=== PATIENT | male | born 1970 | race Caucasian/White ===

== ENCOUNTER 2017-10-28 12:08 | Emergency (ER) | END 2017-10-28 13:52 | disposition home or self-care (01) ==

== ENCOUNTER 2018-07-08 00:06 | Emergency (ER) | END 2018-07-08 06:05 | disposition home or self-care (01) ==

== ENCOUNTER 2019-05-16 21:45 | Emergency (ER) | payer SELFPAY ==
[~2019-05-16] VITALS: Ht 167.6 cm; Wt 88.5 kg
[~2019-05-16 21:45] MED LIST: AMOX500C2 PO; CEPH-443 PO; IBUP-1542 PO; METH750T93 PO; NAPR-688 PO
[2019-05-16 21:56] VITALS: Ht 167.6 cm; Wt 88.5 kg
[2019-05-17] MEDS ORDERED: SOD CHLORIDE 0.9% 500 ML IV STA (01:07)
--- NOTE | 2019-05-17 01:09 | ERD ---
ER Documentation Chief Complaint Chief Complaint WEAKNESS/LETHARGIC/ACTING DIFF PER SINCE RELEASED FROM [facility] Mon 48-year-old man here for episodic syncope over the last 2 weeks, he was released from shelter a week ago and states while there he had a couple of syncopal episodes but he was seen and evaluated by the shelter physician while in custody and states his CT scan and other imaging and work-up was done and was unremarkable. states after release from shelter he had a syncopal episode a few days ago and has been feeling anxious. Patient does admit to anxiety but denies depression, no suicidal homicidal ideation, no complaints of chest pain or shortness of breath, no gait ataxia, no slurred speech, no weakness in his arms or legs ROS All systems reviewed and are negative except as per history of present illness. Medications Home Meds Active Scripts Ibuprofen* (Motrin*) 600 Mg Tab, 600 MG PO Q8 PRN for PAIN AND/OR INFLAMMATION, #30 TAB Prov:BEBE KAUR MD 05/17/19 Cephalexin* (Keflex*) 500 Mg Capsule, 500 MG PO QID for 7 Days, CAP Prov:BEBE KAUR MD 05/17/19 Naproxen* (Naproxen*) 500 Mg Tablet, 500 MG PO BID PRN for PAIN, #20 TAB Prov:DANIELLE NAM DO 07/08/18 Methocarbamol* (Robaxin*) 750 Mg Tablet, 750 MG PO Q6H PRN for MUSCLE SPASMS, #10 TAB Prov:DANIELLE NAM DO 07/08/18 Ibuprofen* (Motrin*) 600 Mg Tab, 600 MG PO Q6, #30 TAB Prov:TREE VALDERRAMA PA-C 10/28/17 Amoxicillin* (Amoxicillin*) 500 Mg Cap, 500 MG PO BID for 10 Days, CAP Prov:TREE VALDERRAMA PA-C 10/28/17 Reported Medications [None] No Conflict Check 01/15/11 Allergies Allergies: Coded Allergies: No Known Drug Allergies (Verified Allergy, Mild, 01/15/11) PMhx/Soc Anxiety History of Surgery: No Anesthesia Reaction: No Hx Neurological Disorder: No Hx Respiratory Disorders: No Hx Cardiac Disorders: No Hx Psychiatric Problems: No Hx Miscellaneous Medical Probl: Yes (psoriasis) Hx Alcohol Use: Yes Hx Substance Use: Yes Hx Tobacco Use: Yes FmHx Family History: No diabetes Physical Exam Vitals Vital Signs Date Temp Pulse Resp B/P (MAP) Pulse Ox O2 O2 Flow FiO2 Time Delivery Rate 05/17/19 73 21 109/72 99 Room Air 02:30 (84) 05/17/19 79 21 113/95 99 Room Air 00:46 (101) 05/16/19 97.4 95 18 118/78 98 21:56 (91) Physical Exam GENERAL: Well-developed, well-nourished, well-hydrated, appears anxious, afebrile HEENT: Moist mucous membranes, pink conjunctiva, no cervical spine tenderness or step-off deformities, no goiter, no jaundice or icterus, extraocular movements intact without pain. No submandibular induration, and no pharyngeal erythema NEURO: Alert and oriented 3, cranial nerves II through XII intact bilaterally, pupils equal round reactive to light, no focal deficits or facial asymmetry, sensation intact distally Strength 5/5 in upper and lower extremities bilaterally CARDIAC: Regular rate and rhythm, no murmurs rubs or gallops LUNGS: Clear bilaterally no wheezing crackles or stridor ABDOMEN: Soft nontender, no guarding, no rigidity, no rebound, no psoas sign no obturator sign. Normoactive bowel sounds SKIN: Warm and dry to touch, no abrasions, contusions, or hematomas, no lacerations, no ecchymosis, no target lesions, and without ulcers EXTREMITIES: No clubbing cyanosis or edema, calves are bilaterally symmetrical, no Homans sign, no popliteal cord sign. Distal pulses equal and bilateral PSYCH: Appears anxious Result Diagram: 05/17/1913005/17/19130 Results 24 hrs Laboratory Tests Test 05/16/19 21:52 05/17/19 01:31 Bedside Glucose 84 mg/dL White Blood Count 9.6 10^3/ul Red Blood Count 4.36 10^6/ul Hemoglobin 13.6 g/dl Hematocrit 40.3 % Mean Corpuscular Volume 92.4 fl Mean Corpuscular Hemoglobin 31.2 pg Mean Corpuscular Hemoglobin Concent 33.7 g/dl Red Cell Distribution Width 12.9 % Platelet Count 289 10^3/UL Mean Platelet Volume 10.4 fl Immature Granulocytes % 0.300 % Neutrophils % 35.3 % Lymphocytes % 46.8 % Monocytes % 9.8 % Eosinophils % 5.8 % Basophils % 2.0 % Nucleated Red Blood Cells % 0.0 /100WBC Immature Granulocytes # 0.030 10^3/ul Neutrophils # 3.4 10^3/ul Lymphocytes # 4.5 10^3/ul Monocytes # 0.9 10^3/ul Eosinophils # 0.6 10^3/ul Basophils # 0.2 10^3/ul Nucleated Red Blood Cells # 0.0 10^3/ul Urine Color YELLOW Urine Clarity CLEAR Urine pH 5.0 Urine Specific Burke 1.020 Urine Ketones NEGATIVE mg/dL Urine Nitrite NEGATIVE mg/dL Urine Bilirubin NEGATIVE mg/dL Urine Urobilinogen NEGATIVE mg/dL Urine Leukocyte Esterase 1+ Myrna/ul Urine Microscopic RBC 1 /HPF Urine Microscopic WBC 27 /HPF Urine Mucus FEW /HPF Urine Hemoglobin NEGATIVE mg/dL Urine Glucose NEGATIVE mg/dL Urine Total Protein NEGATIVE mg/dl Sodium Level 141 mmol/L Potassium Level 3.6 mmol/L Chloride Level 107 mmol/L Carbon Dioxide Level 26 mmol/L Anion Gap 8 Blood Urea Nitrogen 14 mg/dl Creatinine 0.92 mg/dl Est Glomerular Filtrat Rate mL/min > 60 mL/min Glucose Level 110 mg/dl Calcium Level 8.7 mg/dl Total Bilirubin 0.2 mg/dl Direct Bilirubin 0.00 mg/dl Indirect Bilirubin 0.2 mg/dl Aspartate Amino Transf (AST/SGOT) 36 IU/L Alanine Aminotransferase (ALT/SGPT) 47 IU/L Alkaline Phosphatase 62 IU/L Troponin I < 0.012 ng/ml Total Protein 6.9 g/dl Albumin 3.8 g/dl Globulin 3.10 g/dl Albumin/Globulin Ratio 1.22 Lipase 101 U/L Current Medications Medications Dose Sig/Aubrey Start Time Status Last (Trade) Ordered Route PRN Stop Time Admin Dose Reason Admin Alprazolam 0.5 mg ONCE ONCE 05/17/19 DC 05/17/19 (Xanax) PO 01:30 05/17/19 01:44 01:31 Sodium 500 ml @ Q1H STAT 05/17/19 DC 05/17/19 Chloride 500 mls/hr IV 01:07 05/17/19 01:39 02:06 Ceftriaxone 50 ml @ ONCE ONCE 05/17/19 DC 05/17/19 Sodium 100 mls/hr IVPB 02:30 05/17/19 02:16 02:59 Procedures/MDM IV line was established patient was placed on electronic device monitor rhythm strip revealed a sinus rhythm at about 80 bpm with upright P and T waves. Patient was afebrile EKG performed, read by me: 76 bpm, normal sinus rhythm, normal axis, no acute ST segment changes, narrow QRS complex, with good R-wave progression in precordial leads. I administered 500 cc normal saline IV and alprazolam 0.5 mg p.o. x1 CBC was unremarkable, electrolytes normal, liver function test normal, troponin negative, urinalysis positive for infection. Administered ceftriaxone 1 g IV. Patient did have complaints of low back pain although no flank pain and had no flank tenderness to percussion but given his recent symptoms I ordered a CT scan. CT scan of the abdomen pelvis was negative for acute inflammatory infectious pathology, mild degenerative changes and spondylolisthesis was noted to the lumbar spine. Patient's vital signs are normal at this time and he has had no syncopal episodes while in the ER, he looks well and was treated with IV antibiotics and will be discharged with a course of oral antibiotics x1 week. Differential diagnoses considered, included but not limited to acute coronary syndrome, pulmonary embolism, aortic dissection, abdominal aortic aneurysm, sepsis, stroke, meningitis, encephalitis, pneumonia, appendicitis, cholecystitis, bowel obstruction, pyelonephritis, nephrolithiasis, cystitis, as well as metabolic, hematologic, and electrolyte abnormalities. As well as abscess, cellulitis, fractures, and dislocations. Patient feels much better at this time, and vital signs are normal, symptoms have improved. I did give strict instructions to return to the ED if symptoms continue or worsen, patient will otherwise follow-up with primary care physician. Patient understood instructions and agreed to plan. Disclaimer: Inadvertent spelling and grammatical errors are likely due to EHR/dictation software use and do not reflect on the overall quality of patient care. Also, please note that the electronic time recorded on this note does not necessarily reflect the actual time of the patient encounter. Departure Diagnosis: Primary Impression: Syncope Syncope type: unspecified Qualified Codes: R55 - Syncope and collapse Additional Impression: Acute UTI Condition: BEBE Walton MD May 17, 2019 01:09
[2019-05-17] MEDS ORDERED: ALPRAZOLAM 0.25 MG TAB PO ONE (01:30)
[2019-05-17 02:30] VITALS: BP 109/72; PULSE 73; RESP 21
[2019-05-17] MEDS ORDERED: CEFTRIAXONE 1 GM/50 ML (PMX) 50 ML IVPB ONE (02:30)
== END 2019-05-17 03:59 | disposition home or self-care (01) ==
LOC: E/R 21:45
DX: R55 Syncope and collapse (principal); N39.0 Urinary tract infection, site not specified; Z87.891 Personal history of nicotine dependence
CPT/HCPCS: 36415; 74176; 80053; 81001; 82962; 83690; 84484; 85025; 96374; 99285; J0696; J7040; 93005